=== PATIENT | female | born 1960 | race Caucasian/White ===

== ENCOUNTER 2016-04-14 10:18 | Outpatient (CLI) ==
[2016-04-14 10:50] LABS: BASOPHILS # (AUTO) 0.1 K/uL (0-0.2); BASOPHILS % (AUTO) 0.6 % (0.0-3.0); EOSINOPHILS # (AUTO) 0.2 K/ul (0.0-0.7); EOSINOPHILS % (AUTO) 1.8 % (0.0-7.0); HEMATOCRIT 34.5 % (37.0-47.0); HEMOGLOBIN 11.5 g/dl (12.0-16.0); IMMATURE GRANULOCYTE % (AUTO) 0.3 % (0.0-5.0); LYMPHOCYTES # (AUTO) 3.3 K/uL (0.60-3.4); LYMPHOCYTES % (AUTO) 35.8 (10.0-50.0); MEAN CORPUSCULAR HEMOGLOBIN 31.5 pg (27.0-31.0); MEAN CORPUSCULAR HGB CONC 33.3 (31.8-35.4); MEAN CORPUSCULAR VOLUME 94.5 fl (81.0-99.0); MONOCYTES # (AUTO) 0.5 K/uL (0.4-2.0); MONOCYTES % (AUTO) 5.4 (0-10); NEUTROPHILS # (AUTO) 5.2 K/ul (2.0-6.9); NEUTROPHILS % (AUTO) 56.1; PLATELET COUNT 212 10^3/uL (140-440); RED BLOOD COUNT 3.65 10^6/ul (4.20-5.40)
[2016-04-14 13:59] LABS: ALBUMIN 3.4 g/dL (3.4-5.0); ANION GAP 15.8; BILIRUBIN,TOTAL 0.24 mg/dL (0.00-1.20); BUN/CREATININE RATIO 12.43; CALCIUM 8.3 mg/dL (8.2-10.2); CREATININE 1.93 mg/dL (0.60-1.30); POTASSIUM 4.8 mmol/L (3.5-5.10); TOTAL PROTEIN 6.8 g/dL (6.4-8.2)
== END 2016-04-14 10:19 | disposition home or self-care (01) ==
LOC: LAB 10:18
PROVIDERS: ATTEND Family Medicine
DX: E11.21 Type 2 diabetes mellitus with diabetic nephropathy (principal); E78.2 Mixed hyperlipidemia; E03.9 Hypothyroidism, unspecified; N18.3 Chronic kidney disease, stage 3 (moderate); I10 Essential (primary) hypertension
CPT/HCPCS: 36415; 80053; 83036; 84439; 84443; 85025

== ENCOUNTER 2016-05-05 12:10 | Outpatient (CLI) ==
[2016-05-05 12:40] LABS: HEMOGLOBIN 10.8 g/dl (12.0-16.0); MEAN CORPUSCULAR HEMOGLOBIN 31.7 pg (27.0-31.0); MEAN CORPUSCULAR HGB CONC 32.7 (31.8-35.4); MEAN CORPUSCULAR VOLUME 96.8 fl (81.0-99.0); RED BLOOD COUNT 3.41 10^6/ul (4.20-5.40); WHITE BLOOD COUNT 6.46 K/ul (4.6-10.2)
[2016-05-05 13:15] LABS: ALBUMIN 3.3 g/dL (3.4-5.0); ALBUMIN/GLOBULIN RATIO 1.1; ANION GAP 14.8; BILIRUBIN,TOTAL 0.2 mg/dL (0.00-1.20); BUN/CREATININE RATIO 11.89; CALCIUM 8.2 mg/dL (8.2-10.2); CHOL/HDL RATIO 3.4 (4.5-5.5); CREATININE 1.85 mg/dL (0.60-1.30); POTASSIUM 4.8 mmol/L (3.5-5.10); TOTAL PROTEIN 6.3 g/dL (6.4-8.2)
[2016-05-06 09:41] LABS: URINE CREATININE 107.2 mg/dL (Not Estab.)
[2016-05-06 13:58] LABS: URINE MALB/CR RATIO 852.5 mg/g creat (0.0-30.0)
== END 2016-05-05 12:11 | disposition home or self-care (01) ==
LOC: LAB 12:10
PROVIDERS: ATTEND Internal Medicine Nephrology
DX: E03.9 Hypothyroidism, unspecified (principal); N18.3 Chronic kidney disease, stage 3 (moderate); E78.5 Hyperlipidemia, unspecified
CPT/HCPCS: 36415; 80053; 80061; 82043; 83970; 84443; 85027

== ENCOUNTER 2016-11-19 11:20 | Outpatient (CLI) ==
[2016-11-19 11:49] LABS: BASOPHILS # (AUTO) 0.1 K/uL (0-0.2); BASOPHILS % (AUTO) 0.6 % (0.0-3.0); EOSINOPHILS # (AUTO) 0.1 K/ul (0.0-0.7); EOSINOPHILS % (AUTO) 0.7 % (0.0-7.0); HEMATOCRIT 37.6 % (37.0-47.0); HEMOGLOBIN 12.3 g/dl (12.0-16.0); IMMATURE GRANULOCYTE % (AUTO) 0.2 % (0.0-5.0); LYMPHOCYTES # (AUTO) 1.3 K/uL (0.60-3.4); LYMPHOCYTES % (AUTO) 15.4 (10.0-50.0); MEAN CORPUSCULAR HEMOGLOBIN 31.2 pg (27.0-31.0); MEAN CORPUSCULAR HGB CONC 32.7 (31.8-35.4); MEAN CORPUSCULAR VOLUME 95.4 fl (81.0-99.0); MONOCYTES # (AUTO) 0.4 K/uL (0.4-2.0); MONOCYTES % (AUTO) 4.7 (0-10); NEUTROPHILS # (AUTO) 6.4 K/ul (2.0-6.9); NEUTROPHILS % (AUTO) 78.4; PLATELET COUNT 178 10^3/uL (140-440); RED BLOOD COUNT 3.94 10^6/ul (4.20-5.40); WHITE BLOOD COUNT 8.16 K/ul (4.6-10.2)
[2016-11-19 12:28] LABS: ALBUMIN 3.5 g/dL (3.4-5.0); ALBUMIN/GLOBULIN RATIO 0.97; BILIRUBIN,TOTAL 0.29 mg/dL (0.00-1.20); BUN/CREATININE RATIO 11.37; CHOL/HDL RATIO 3.7 (4.5-5.5); CREATININE 2.55 mg/dL (0.60-1.30); TOTAL PROTEIN 7.1 g/dL (6.4-8.2)
[2016-11-19 16:34] VITALS: BMI 21.6
[2016-11-20 09:49] LABS: URINE CREATININE 147.1 mg/dL (Not Estab.); URINE MALB/CR RATIO 471.2 mg/g creat (0.0-30.0)
== END 2016-11-19 11:21 | disposition home or self-care (01) ==
LOC: LAB 11:20
PROVIDERS: ATTEND Internal Medicine Nephrology
DX: N18.3 Chronic kidney disease, stage 3 (moderate) (principal); E11.21 Type 2 diabetes mellitus with diabetic nephropathy; F31.9 Bipolar disorder, unspecified; E78.2 Mixed hyperlipidemia; E03.9 Hypothyroidism, unspecified
CPT/HCPCS: 36415; 80053; 80061; 82043; 83036; 83970; 84439; 84443; 85025

== ENCOUNTER 2016-11-19 16:29 | Emergency (ER) ==
[2016-11-19 16:34] VITALS: BP 119/74; TEMP 98.1; BMI 21.6
--- NOTE | 2016-11-19 16:53 | ED.PDOC ---
General ED Provider: Dr. DORITA NICHOLSON Chief Complaint: Abnormal Labs Stated Complaint: Patient advised by her PCP that her recent lab work showed a potassium of 7.0. Patient is asymptomatic. She was told to come here and be evaluated. Time Seen by Physician: 17:50 Mode of Arrival: Walk-In Information Source: Patient Exam Limitations: No limitations Primary Care Provider: ARTIE FOSTER Nursing and Triage Documentation Reviewed and Agree: Yes Miscellaneous Complaint Exam - Complex/Multi-System Complaint/Exam Onset/Duration: No symptoms Initial Severity: None Current Severity: None Related History: Other (PMH of kidney damage from aspirin overdose as a child) Recent Echo/LV Function: No Respiratory Distress: None JVD Present: No Tachypnea Present: No Stridor Present: No Abdominal Findings: Present: Normal findings Meningeal Signs Positive: No Focal Weakness: Present: None Gait: Normal Gag Reflex Present: Yes Babinski Sign: Negative Right, Negative Left Skin Findings: Present: Normal findings Joint Swelling Present: No In-Dwelling Device Present: No Differential Diagnosis: Other (lab error, hyperkalemia) Quality Indicator For Non-Traumatic Chest Pain/Syncope: EKG Performed (done to see if evidence of hyperkalemia) Review of Systems - Review Of Systems Constitutional: Reports: No symptoms Eyes: Reports: No symptoms Ears, Nose, Mouth, Throat: Reports: No symptoms Respiratory: Reports: No symptoms Cardiac: Reports: No symptoms GI: Reports: No symptoms : Reports: No symptoms Musculoskeletal: Reports: No symptoms Skin: Reports: No symptoms Neurological: Reports: No symptoms Endocrine: Reports: No symptoms Hematologic/Lymphatic: Reports: No symptoms All Other Systems: Reviewed and Negative Past Medical History - Past Medical History Previously Healthy: Yes Endocrine: Reports: None Cardiovascular: Reports: None Respiratory: Reports: None Hematological: Reports: None Gastrointestinal: Reports: None Genitourinary: Reports: CKD Neuro/Psych: Reports: Anxiety Musculoskeletal: Reports: None Cancer: Reports: None Last Menstrual Period: n/a - Surgical History General Surgical History: Reports: None - Family History Family History: Reports: None - Social History Smoking Status: Former smoker Hx Substance Use: No Alcohol Screening: None Physical Exam - Physical Exam Appearance: Well-appearing, No pain distress, Well-nourished Neck: Supple Respiratory: Airway patent, Breath sounds clear, Breath sounds equal, Respirations nonlabored Cardiovascular: RRR, Pulses normal, No rub, No murmur GI/: Soft, Nontender, No masses, Bowel sounds normal, No Organomegaly Musculoskeletal: Normal strength, ROM intact, No edema, No calf tenderness Skin: Warm, Dry, Normal color Neurological: Sensation intact, Motor intact, Reflexes intact, Cranial nerves intact, Alert, Oriented Psychiatric: Anxious (mild anxiety) Interpretation - EKG Interpretation Rate: Normal Rhythm: Sinus (no peaking of T waves) Critical Care Note - Critical Care Note Total Time (mins): 0 Course - Course Hematology/Chemistry: 11/19/16 16:50 Orders, Labs, Meds: Lab Review 11/19/16 16:50 Potassium 6.0 H Orders Category Date Time Status EKG-(ED ONLY) Stat CARDIO 11/19/16 16:50 Ordered POTASSIUM Stat LAB 11/19/16 16:50 Completed Vital Signs: Temp Pulse Resp BP Pulse Ox 11/19/16 16:30 98.1 F 118 H 20 119/74 97 Departure - Departure Time of Disposition: 17:20 Disposition: HOME SELF-CARE Discharge Problem: Hyperkalemia Instructions: Hyperkalemia (ED) Condition: Good Pt referred to PMD for follow-up: Yes (F/U with steamfitter on Wednesday as planned. ) Additional Instructions: Resume drinking 8 glasses of water a day Allergies/Adverse Reactions: Allergies No Known Allergies Allergy (Unverified 11/19/16 16:34) Home Medications: Ambulatory Orders Lisinopril 10 mg PO DAILY 11/19/16
== END 2016-11-19 17:54 | disposition home or self-care (01) ==
LOC: ED 16:29
DX: E87.5 Hyperkalemia (principal); N18.3 Chronic kidney disease, stage 3 (moderate); E11.21 Type 2 diabetes mellitus with diabetic nephropathy; F31.9 Bipolar disorder, unspecified; E78.2 Mixed hyperlipidemia; E03.9 Hypothyroidism, unspecified
CPT/HCPCS: 36415; 80053; 80061; 82043; 83036; 83970; 84132; 84439; 84443; 85025; 93005; 93010; 99282

== ENCOUNTER 2016-11-30 09:29 | Outpatient (CLI) ==
[2016-11-30 10:14] LABS: ANION GAP 13.1; BUN/CREATININE RATIO 12.55; CALCIUM 8.5 mg/dL (8.2-10.2); CREATININE 2.39 mg/dL (0.60-1.30); POTASSIUM 5.1 mmol/L (3.5-5.10)
== END 2016-11-30 09:30 | disposition home or self-care (01) ==
LOC: LAB 09:29
PROVIDERS: ATTEND Internal Medicine Nephrology
DX: N18.3 Chronic kidney disease, stage 3 (moderate) (principal); E87.5 Hyperkalemia
CPT/HCPCS: 36415; 80048

== ENCOUNTER 2017-01-05 10:13 | Outpatient (CLI) ==
[2017-01-05 10:57] LABS: ALBUMIN 3.3 g/dL (3.4-5.0); ANION GAP 13.9; BUN/CREATININE RATIO 7.52; CALCIUM 8.9 mg/dL (8.2-10.2); CREATININE 1.86 mg/dL (0.60-1.30); PHOSPHORUS 3.9 mg/dL (2.5-4.9); POTASSIUM 4.9 mmol/L (3.5-5.10)
== END 2017-01-05 10:14 | disposition home or self-care (01) ==
LOC: LAB 10:13
PROVIDERS: ATTEND Nurse Practitioner Family
DX: N18.4 Chronic kidney disease, stage 4 (severe) (principal)
CPT/HCPCS: 36415; 80069

== ENCOUNTER 2017-02-01 11:20 | Outpatient (CLI) ==
[2017-02-01 11:52] LABS: HEMATOCRIT 31.9 % (37.0-47.0); HEMOGLOBIN 10.4 g/dl (12.0-16.0); MEAN CORPUSCULAR HEMOGLOBIN 30.8 pg (27.0-31.0); MEAN CORPUSCULAR HGB CONC 32.6 (31.8-35.4); MEAN CORPUSCULAR VOLUME 94.4 fl (81.0-99.0); RED BLOOD COUNT 3.38 10^6/ul (4.20-5.40); WHITE BLOOD COUNT 7.41 K/ul (4.6-10.2)
[2017-02-01 12:11] LABS: ANION GAP 17.2; BUN/CREATININE RATIO 13.77; CALCIUM 9.1 mg/dL (8.2-10.2); CREATININE 2.54 mg/dL (0.60-1.30); POTASSIUM 5.2 mmol/L (3.5-5.10)
[2017-02-02 09:38] LABS: URINE CREATININE 41.2 mg/dL (Not Estab.); URINE MALB/CR RATIO 1118.7 mg/g creat (0.0-30.0)
== END 2017-02-01 11:21 | disposition home or self-care (01) ==
LOC: LAB 11:20
PROVIDERS: ATTEND Internal Medicine Nephrology
DX: N18.3 Chronic kidney disease, stage 3 (moderate) (principal)
CPT/HCPCS: 36415; 80048; 82043; 83970; 85027

== ENCOUNTER 2017-02-08 11:11 | Outpatient (CLI) ==
[2017-02-08 11:30] LABS: BASOPHILS % (AUTO) 0.6 % (0.0-3.0); EOSINOPHILS # (AUTO) 0.1 K/ul (0.0-0.7); EOSINOPHILS % (AUTO) 0.9 % (0.0-7.0); HEMATOCRIT 32.6 % (37.0-47.0); HEMOGLOBIN 10.9 g/dl (12.0-16.0); IMMATURE GRANULOCYTE % (AUTO) 0.4 % (0.0-5.0); LYMPHOCYTES # (AUTO) 1.2 K/uL (0.60-3.4); LYMPHOCYTES % (AUTO) 17.6 (10.0-50.0); MEAN CORPUSCULAR HEMOGLOBIN 30.9 pg (27.0-31.0); MEAN CORPUSCULAR HGB CONC 33.4 (31.8-35.4); MEAN CORPUSCULAR VOLUME 92.4 fl (81.0-99.0); MONOCYTES # (AUTO) 0.3 K/uL (0.4-2.0); MONOCYTES % (AUTO) 4.5 (0-10); NEUTROPHILS # (AUTO) 5.3 K/ul (2.0-6.9); PLATELET COUNT 180 10^3/uL (140-440); RED BLOOD COUNT 3.53 10^6/ul (4.20-5.40); WHITE BLOOD COUNT 6.94 K/ul (4.6-10.2)
[2017-02-08 11:51] LABS: ANION GAP 14.1; BUN/CREATININE RATIO 8.67; CALCIUM 8.5 mg/dL (8.2-10.2); CREATININE 2.42 mg/dL (0.60-1.30)
[2017-02-08 13:15] LABS: POTASSIUM 6.1 mmol/L (3.5-5.10)
[2017-02-09 10:00] LABS: URINE CREATININE 122.7 mg/dL (Not Estab.); URINE MALB/CR RATIO 1406.4 mg/g creat (0.0-30.0)
== END 2017-02-08 11:12 | disposition home or self-care (01) ==
LOC: LAB 11:11
PROVIDERS: ATTEND Internal Medicine Nephrology
DX: N18.3 Chronic kidney disease, stage 3 (moderate) (principal)
CPT/HCPCS: 36415; 80048; 82043; 83970; 85025

== ENCOUNTER 2017-02-15 09:32 | Outpatient (CLI) ==
[2017-02-15 10:18] LABS: ANION GAP 15.3; BUN/CREATININE RATIO 12.28; CALCIUM 8.3 mg/dL (8.2-10.2); CREATININE 2.36 mg/dL (0.60-1.30); POTASSIUM 5.3 mmol/L (3.5-5.10)
== END 2017-02-15 09:33 | disposition home or self-care (01) ==
LOC: LAB 09:32
PROVIDERS: ATTEND Internal Medicine Nephrology
DX: N18.3 Chronic kidney disease, stage 3 (moderate) (principal)
CPT/HCPCS: 36415; 80048

== ENCOUNTER 2017-04-19 11:47 | Outpatient (CLI) | END 2017-04-19 11:48 | disposition home or self-care (01) | LOC: LAB 11:47 | PROVIDERS: ATTEND Internal Medicine Nephrology | DX: N18.3 Chronic kidney disease, stage 3 (moderate) (principal) | CPT/HCPCS: 36415; 80048; 82043; 83970; 85027 ==

== ENCOUNTER 2017-08-17 10:08 | Outpatient (CLI) | END 2017-08-17 10:09 | disposition home or self-care (01) | LOC: LAB 10:08 | PROVIDERS: ATTEND Internal Medicine Nephrology | DX: N18.4 Chronic kidney disease, stage 4 (severe) (principal) | CPT/HCPCS: 36415; 80053; 82043; 83970; 85027 ==

== ENCOUNTER 2017-10-18 11:31 | Outpatient (CLI) | END 2017-10-18 11:32 | disposition home or self-care (01) | LOC: LAB 11:31 | PROVIDERS: ATTEND Internal Medicine Nephrology | DX: N18.4 Chronic kidney disease, stage 4 (severe) (principal) | CPT/HCPCS: 36415; 80048; 82043; 85027 ==

== ENCOUNTER 2018-10-29 12:55 | Outpatient (CLI) | END 2018-10-29 12:56 | disposition home or self-care (01) | LOC: LAB 12:55 | PROVIDERS: ATTEND Nurse Practitioner Family | DX: N18.6 End stage renal disease (principal); D64.9 Anemia, unspecified | CPT/HCPCS: 36415; 36430; 85014; 85018; 86850; 86900; 86922; 96365; 96375 ==

== ENCOUNTER 2018-10-29 15:01 | Outpatient (CLI) ==
[2018-10-29] MEDS ORDERED: TYLENOL PO STA (15:20)
[2018-10-29] MEDS ORDERED: BENADRYL 25 MG in SODIUM CHLORIDE 100 ML IV STA (15:20)
[2018-10-29] MEDS ORDERED: SOLU-MEDROL 125 MG IVP STA (15:21)
[2018-10-29] MEDS ORDERED: BENADRYL ONE (15:50)
[2018-10-29] MEDS ORDERED: SODIUM CHLORIDE 100 ML IV ONE (16:02)
[2018-10-30 00:22] VITALS: BP 126/83; TEMP 98
== END 2018-10-29 15:02 | disposition home or self-care (01) ==
LOC: OPMED 15:01
PROVIDERS: ATTEND Nurse Practitioner
DX: D64.9 Anemia, unspecified (principal)
CPT/HCPCS: 36415; 36430; 86850; 86900; 86922

== ENCOUNTER 2018-11-12 14:49 | Outpatient (CLI) | END 2018-11-12 15:08 | disposition short-term general hospital (02) | LOC: AMBL 14:49 | PROVIDERS: ATTEND Internal Medicine | DX: R06.02 Shortness of breath (principal); N18.9 Chronic kidney disease, unspecified; Z99.2 Dependence on renal dialysis; F41.9 Anxiety disorder, unspecified ==